=== PATIENT | male | born 1955 | race Hispanic/Latino ===

== ENCOUNTER 2017-05-31 09:24 | Outpatient (CLI) | payer MEDICAID ==
[2017-05-31 10:10] LABS: Blood Urea Nitrogen 14 mg/dL (9-20)
[2017-05-31] MEDS ORDERED: NACL ONE (12:43)
--- NOTE | 2017-05-31 13:38 | Cat Scan Report ---
CT scan of abdomen and Pelvis without and with IV contrast: History: Chronic while hepatitis C. Findings: Normal lung bases. No pleural or pericardial effusion. Normal liver spleen pancreas and gallbladder. Normal right adrenal gland. 6 mm nodule left adrenal gland probably an adenoma. Normal kidneys and bladder. No free intraperitoneal fluid or. No evidence of adenopathy. Gaseous colon with minimal stool in colon. No evidence of appendicitis or diverticulitis. No bowel distention. Right and left small inguinal hernia containing fat. Impression: Small nodule left adrenal gland probably an adenoma. Small bilateral inguinal hernia containing fat.
== END 2017-05-31 09:25 | disposition home or self-care (01) ==
LOC: CT 09:24
PROVIDERS: ATTEND Internal Medicine Infectious Disease
DX: B18.2 Chronic viral hepatitis C (principal); K40.90 Unilateral inguinal hernia, without obstruction or gangrene, not specified as recurrent
CPT/HCPCS: 36415; 74178; 82565; 84520; Q9967